=== PATIENT | female | born 1960 | race American Indian/Alaskan Native ===

== ENCOUNTER 2017-08-25 23:15 | Emergency (ER) | payer OTHER ==
[2017-08-26 00:58] LABS: Mean Corpuscular HGB Conc 34 % (30-34); Mean Corpuscular Hemoglobin 30 pg (28-32); Mean Corpuscular Volume 86 fl (79-97); Platelet Count 165 K/mm3 (140-440); Red Blood Count 4.06 M/mm3 (3.65-5.03); Red Cell Distribution Width 15.6 % (13.2-15.2)
[2017-08-26 01:12] LABS: INR 0.98 (0.87-1.13)
[2017-08-26 01:13] LABS: Partial Thromboplastin Time 32.1 Sec. (24.2-36.6)
[2017-08-26] MEDS ORDERED: TORADOL IV ONE (01:13)
[2017-08-26] MEDS ORDERED: NACL 0.9% 1000 ML 1,000 ML IV ONE (01:13)
[2017-08-26] MEDS ORDERED: ZOFRAN IV ONE ×2 (01:13→03:25)
--- NOTE | 2017-08-26 01:20 | Emergency Department Report ---
- General Chief Complaint: Chest Pain Stated Complaint: BODY PAIN Time Seen by Provider: 08/25/17 23:57 Source: patient, family, EMS, old records reviewed Mode of arrival: Stretcher Limitations: No Limitations - History of Present Illness Initial Comments: 57-year-old female with a past medical history of the COPD and hypertension presents to hospital with complaints of generalized bodyaches that started this morning. Patient having nausea without vomiting. The patient is has anterior chest pain reproducible palpation. Dry cough reported. Sore throat and generalized headache without neck stiffness. No documented fever by fevers and chills reported. Patient did receive a flu shot this year. 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 Upon further questioning it appears patient is preferring first 2013 visit and hospitalization here. At this time patient had elevated cardiac enzymes Revealed normal coronary arteries EF of 50%. EKG also normal. Patient states that her understanding is that her heart symptoms were induced by an infection. She denies any more recent cardiac workup. It appears that viral myocarditis with a consideration by treating ED physician on record although not a final diagonsis on d/c summary. Patient's troponin increased to over 8 during last hospitalization despite normal cath and patient presented with infectious symptoms suggesting a diagnosis of a viral myocarditis MD Complaint: other - Related Data Previous Rx's Medication Instructions Recorded Last Taken Type Aspirin EC [Aspirin Enteric Coated 325 mg PO QDAY #30 tablet 06/23/14 Unknown Rx TAB] Clopidogrel [Plavix] 75 mg PO QDAY #30 tablet 06/23/14 Unknown Rx Lisinopril [Zestril TAB] 20 mg PO QDAY #30 tablet 06/23/14 Unknown Rx Metoprolol [Lopressor TAB] 12.5 mg PO BID #60 tablet 06/23/14 Unknown Rx Rosuvastatin (Nf) [Crestor] 20 mg PO QHS #30 tablet 06/23/14 Unknown Rx Ibuprofen [Motrin] 800 mg PO Q8HR PRN #20 tablet 08/26/17 Unknown Rx Ondansetron [Zofran Odt] 4 mg PO Q8HR #20 tab.rapdis 08/26/17 Unknown Rx Allergies Allergy/AdvReac Type Severity Reaction Status Date / Time codeine Allergy Swelling Verified 06/20/14 11:48 Sulfa (Sulfonamide Allergy Unknown Verified 06/20/14 11:48 Antibiotics) ED Review of Systems ROS: Stated complaint: BODY PAIN Other details as noted in HPI Comment: All other systems reviewed and negative Other: Constitutional: Subjective fever Eyes: No eye pain visual changes or discharge ENT: No ear pain or throat pain Neck: Denies pain Respiratory: as per hpi Cardiovascular: Denies chest pain, palpitations, syncope GI: Generalized abdominal soreness, nausea, without diarrhea : Denies dysuria Musculoskeletal: gen body aches Skin: Denies rash, lesions, erythema Neurologic: Denies headache, numbness, weakness Psychiatric: Denies suicidal ideation, hallucinations ED Past Medical Hx - Past Medical History Previous Medical History?: Yes Hx Hypertension: Yes Hx Heart Attack/AMI: No (reported [place] here 2013 by cath showed normal coronary arteries) Hx COPD: Yes Hx HIV: No Additional medical history: DDD - Surgical History Past Surgical History?: Yes Hx Coronary Stent: No Additional Surgical History: tonsillectomy. hysterectomy. back fusion - Social History Smoking Status: Unknown if ever smoked Substance Use Type: Prescribed - Medications Home Medications: Home Medications Medication Instructions Recorded Confirmed Last Taken Type Aspirin EC [Aspirin Enteric Coated 325 mg PO QDAY #30 tablet 06/23/14 Unknown Rx TAB] Clopidogrel [Plavix] 75 mg PO QDAY #30 tablet 06/23/14 Unknown Rx Lisinopril [Zestril TAB] 20 mg PO QDAY #30 tablet 06/23/14 Unknown Rx Metoprolol [Lopressor TAB] 12.5 mg PO BID #60 tablet 06/23/14 Unknown Rx Rosuvastatin (Nf) [Crestor] 20 mg PO QHS #30 tablet 06/23/14 Unknown Rx Ibuprofen [Motrin] 800 mg PO Q8HR PRN #20 tablet 08/26/17 Unknown Rx Ondansetron [Zofran Odt] 4 mg PO Q8HR #20 tab.rapdis 08/26/17 Unknown Rx ED Physical Exam - General Limitations: No Limitations - Other Other exam information: General: No limitations, moderate distress due to body aches Head exam: Atraumatic, normocephalic Eyes exam: Normal appearance, pupils equal reactive to light, extraocular movements intact ENT: Moist mucous membrane, normal oropharynx, no exudates Neck exam: Normal inspection, full range of motion, no meningismus nontender Respiratory exam: Clear to auscultation bilateral, no wheezes, rales, crackles parasternal chest wall tenderness Cardiovascular: Normal rate and rhythm, normal heart sounds Abdomen: Soft, nondistended, mild generalized tenderness without rebound or guarding Extremity: Full range of motion normal inspection no deformity Back: Normal Inspection, full range of motion, no tenderness Neurologic: Alert, oriented x3, cranial nerves intact, no motor or sensory deficit Psychiatric: normal affect, normal mood Skin: Warm, dry, intact ED Course Vital Signs 08/26/17 08/26/17 08/26/17 00:10 01:00 01:45 Temperature 98.1 F Pulse Rate 95 H 94 H 90 Respiratory 18 16 18 Rate Blood Pressure 140/65 Blood Pressure 161/79 151/82 [Left] O2 Sat by Pulse 99 99 98 Oximetry 08/26/17 08/26/17 08/26/17 01:48 01:50 02:00 Temperature Pulse Rate 91 H Respiratory 20 20 20 Rate Blood Pressure Blood Pressure 141/71 [Left] O2 Sat by Pulse 100 Oximetry 08/26/17 08/26/17 05:24 06:04 Temperature Pulse Rate 83 85 Respiratory 18 18 Rate Blood Pressure Blood Pressure 129/69 132/68 [Left] O2 Sat by Pulse 97 100 Oximetry - Reevaluation(s) Reevaluation #1: 08/26/17 05:20 Patient initially had relief in symptoms with treatment. Patient states she started to have some mild epigastric pain and global headache is starting to return. She denies any neck pain or stiffness ED Medical Decision Making - Lab Data Result diagrams: 08/26/17 00:49 08/26/17 00:49 Lab Results 08/26/17 08/26/17 08/26/17 Range/Units 00:49 00:49 00:49 WBC 5.3 (4.5-11.0) K/mm3 RBC 4.06 (3.65-5.03) M/mm3 Hgb 12.0 (10.1-14.3) gm/dl Hct 35.0 (30.3-42.9) % MCV 86 (79-97) fl MCH 30 (28-32) pg MCHC 34 (30-34) % RDW 15.6 H (13.2-15.2) % Plt Count 165 (140-440) K/mm3 Add Manual Diff Complete Total Counted 100 Seg Neuts % (Manual) 87.0 H (40.0-70.0) % Band Neutrophils % 7.0 % Lymphocytes % (Manual) 5.0 L (13.4-35.0) % Reactive Lymphs % (Man) 0 % Monocytes % (Manual) 1.0 (0.0-7.3) % Eosinophils % (Manual) 0 (0.0-4.3) % Basophils % (Manual) 0 (0.0-1.8) % Metamyelocytes % 0 % Myelocytes % 0 % Promyelocytes % 0 % Blast Cells % 0 % Nucleated RBC % Not Reportable Seg Neutrophils # Man 4.6 (1.8-7.7) K/mm3 Band Neutrophils # 0.4 K/mm3 Lymphocytes # (Manual) 0.3 L (1.2-5.4) K/mm3 Abs React Lymphs (Man) 0.0 K/mm3 Monocytes # (Manual) 0.1 (0.0-0.8) K/mm3 Eosinophils # (Manual) 0.0 (0.0-0.4) K/mm3 Basophils # (Manual) 0.0 (0.0-0.1) K/mm3 Metamyelocytes # 0.0 K/mm3 Myelocytes # 0.0 K/mm3 Promyelocytes # 0.0 K/mm3 Blast Cells # 0.0 K/mm3 WBC Morphology Not Reportable Hypersegmented Neuts Not Reportable Hyposegmented Neuts Not Reportable Hypogranular Neuts Not Reportable Smudge Cells Not Reportable Toxic Granulation Not Reportable Toxic Vacuolation Not Reportable Dohle Bodies Not Reportable Pelger-Huet Anomaly Not Reportable Jerry Rods Not Reportable Platelet Estimate Consistent w auto Clumped Platelets Not Reportable Plt Clumps, EDTA Not Reportable Large Platelets Not Reportable Giant Platelets Not Reportable Platelet Satelliting Not Reportable Plt Morphology Comment Not Reportable RBC Morphology Not Reportable Dimorphic RBCs Not Reportable Polychromasia Not Reportable Hypochromasia Not Reportable Poikilocytosis Not Reportable Anisocytosis 1+ Microcytosis Not Reportable Macrocytosis Not Reportable Spherocytes Not Reportable Pappenheimer Bodies Not Reportable Sickle Cells Not Reportable Target Cells Not Reportable Tear Drop Cells Not Reportable Ovalocytes Not Reportable Helmet Cells Not Reportable [place] Bodies Not Reportable [place] Rings Not Reportable [place] Cells Not Reportable Bite Cells Not Reportable Crenated Cell Not Reportable Elliptocytes Not Reportable Acanthocytes (Spur) Not Reportable Rouleaux Not Reportable Hemoglobin C Crystals Not Reportable Schistocytes Not Reportable Malaria parasites Not Reportable Matteo Bodies Not Reportable Hem Pathologist Commnt No PT 13.5 (12.2-14.9) Sec. INR 0.98 (0.87-1.13) APTT 32.1 (24.2-36.6) Sec. Sodium 139 (137-145) mmol/L Potassium 3.7 (3.6-5.0) mmol/L Chloride 105.7 (98-107) mmol/L Carbon Dioxide 19 L (22-30) mmol/L Anion Gap 18 mmol/L BUN 8 (7-17) mg/dL Creatinine 0.6 L (0.7-1.2) mg/dL Estimated GFR > 60 ml/min BUN/Creatinine Ratio 13 % Glucose 113 H (65-100) mg/dL Calcium 8.3 L (8.4-10.2) mg/dL Total Creatine Kinase (30-135) units/L CK-MB (CK-2) (0.0-4.0) ng/mL CK-MB (CK-2) Rel Index (0-4) Troponin T < 0.010 (0.00-0.029) ng/mL Urine Color (Yellow) Urine Turbidity (Clear) Urine pH (5.0-7.0) Ur Specific [place] (1.003-1.030) Urine Protein (Negative) mg/dL Urine Glucose (UA) (Negative) mg/dL Urine Ketones (Negative) mg/dL Urine Blood (Negative) Urine Nitrite (Negative) Urine Bilirubin (Negative) Urine Urobilinogen (<2.0) mg/dL Ur Leukocyte Esterase (Negative) Urine WBC (Auto) (0.0-6.0) /HPF Urine RBC (Auto) (0.0-6.0) /HPF U Epithel Cells (Auto) (0-13.0) /HPF Urine Mucus /HPF 08/26/17 08/26/17 08/26/17 Range/Units 00:49 03:38 03:56 WBC (4.5-11.0) K/mm3 RBC (3.65-5.03) M/mm3 Hgb (10.1-14.3) gm/dl Hct (30.3-42.9) % MCV (79-97) fl MCH (28-32) pg MCHC (30-34) % RDW (13.2-15.2) % Plt Count (140-440) K/mm3 Add Manual Diff Total Counted Seg Neuts % (Manual) (40.0-70.0) % Band Neutrophils % % Lymphocytes % (Manual) (13.4-35.0) % Reactive Lymphs % (Man) % Monocytes % (Manual) (0.0-7.3) % Eosinophils % (Manual) (0.0-4.3) % Basophils % (Manual) (0.0-1.8) % Metamyelocytes % % Myelocytes % % Promyelocytes % % Blast Cells % % Nucleated RBC % Seg Neutrophils # Man (1.8-7.7) K/mm3 Band Neutrophils # K/mm3 Lymphocytes # (Manual) (1.2-5.4) K/mm3 Abs React Lymphs (Man) K/mm3 Monocytes # (Manual) (0.0-0.8) K/mm3 Eosinophils # (Manual) (0.0-0.4) K/mm3 Basophils # (Manual) (0.0-0.1) K/mm3 Metamyelocytes # K/mm3 Myelocytes # K/mm3 Promyelocytes # K/mm3 Blast Cells # K/mm3 WBC Morphology Hypersegmented Neuts Hyposegmented Neuts Hypogranular Neuts Smudge Cells Toxic Granulation Toxic Vacuolation Dohle Bodies Pelger-Huet Anomaly Jerry Rods Platelet Estimate Clumped Platelets Plt Clumps, EDTA Large Platelets Giant Platelets Platelet Satelliting Plt Morphology Comment RBC Morphology Dimorphic RBCs Polychromasia Hypochromasia Poikilocytosis Anisocytosis Microcytosis Macrocytosis Spherocytes Pappenheimer Bodies Sickle Cells Target Cells Tear Drop Cells Ovalocytes Helmet Cells [place] Bodies [place] Rings [place] Cells Bite Cells Crenated Cell Elliptocytes Acanthocytes (Spur) Rouleaux Hemoglobin C Crystals Schistocytes Malaria parasites Matteo Bodies Hem Pathologist Commnt PT (12.2-14.9) Sec. INR (0.87-1.13) APTT (24.2-36.6) Sec. Sodium (137-145) mmol/L Potassium (3.6-5.0) mmol/L Chloride (98-107) mmol/L Carbon Dioxide (22-30) mmol/L Anion Gap mmol/L BUN (7-17) mg/dL Creatinine (0.7-1.2) mg/dL Estimated GFR ml/min BUN/Creatinine Ratio % Glucose (65-100) mg/dL Calcium (8.4-10.2) mg/dL Total Creatine Kinase 73 (30-135) units/L CK-MB (CK-2) < 1.0 (0.0-4.0) ng/mL CK-MB (CK-2) Rel Index 1.3 (0-4) Troponin T < 0.010 (0.00-0.029) ng/mL Urine Color Yellow (Yellow) Urine Turbidity Clear (Clear) Urine pH 6.0 (5.0-7.0) Ur Specific [place] 1.015 (1.003-1.030) Urine Protein <15 mg/dl (Negative) mg/dL Urine Glucose (UA) Neg (Negative) mg/dL Urine Ketones Neg (Negative) mg/dL Urine Blood Neg (Negative) Urine Nitrite Neg (Negative) Urine Bilirubin Neg (Negative) Urine Urobilinogen < 2.0 (<2.0) mg/dL Ur Leukocyte Esterase Neg (Negative) Urine WBC (Auto) < 1.0 (0.0-6.0) /HPF Urine RBC (Auto) 2.0 (0.0-6.0) /HPF U Epithel Cells (Auto) 1.0 (0-13.0) /HPF Urine Mucus Few /HPF - EKG Data -: EKG Interpreted by [facility] EKG shows normal: sinus rhythm, axis (33), QRS complexes (81), ST-T waves (no stemi/t inv) Rate: normal (98) - EKG Data When compared to previous EKG there are: no significant change (06/20/14) - Radiology Data Radiology results: report reviewed (chest x-ray: No acute findings) - Medical Decision Making Patient having symptoms of a viral syndrome definitive bacterial source identified No signs of [place] or EKG/troponin abnormality suggest recurrent myocarditis (trop neg x2 ekg neg x 2) No signs of sepsis Improvement with ED treatment UA neg Patient will be discharged home symptomatic treatment and follow-up will be encouraged Patient reports an allergy to codeine then includes swelling of her airway and and does not know if she can take [place] or Percocet therefore only Motrin will be prescribed for pain - Differential Diagnosis viral syndrome, intra-abdominal pathology, UTI, pneumonia, [place] Critical Care Time: No Critical care attestation.: If time is entered above; I have spent that time in minutes in the direct care of this critically ill patient, excluding procedure time. ED Disposition Clinical Impression: Viral syndrome, Costochondritis Disposition: TO HOME OR SELFCARE Is pt being admited?: No Does the pt Need Aspirin: No Condition: Stable Instructions: Costochondritis (ED), Viral Syndrome (ED) Additional Instructions: Take the medication as prescribed. Follow-up with your doctor (or the doctor provided). Return if symptoms worsen as indicated by your discharge instructions Prescriptions: Ibuprofen [Motrin] 800 mg PO Q8HR PRN #20 tablet PRN Reason: Pain Ondansetron [Zofran Odt] 4 mg PO Q8HR #20 tab.rapdis Referrals: SAMPSON GIBSON MD [Staff Physician] - 3-5 Days your, doctor [Other] - 3-5 Days Time of Disposition: 06:05
[2017-08-26 01:24] LABS: BUN/Creatinine Ratio 13; Blood Urea Nitrogen 8 mg/dL (7-17); Calcium 8.3 mg/dL (8.4-10.2); Hemolysis Index 4
[2017-08-26 01:26] LABS: Creatine Kinase MB < 1.0 ng/mL (0.0-4.0)
[2017-08-26] MEDS ORDERED: MORPHINE IV ONE (01:33)
--- NOTE | 2017-08-26 02:17 | XRay Report ---
FINAL REPORT PROCEDURE: XR CHEST 1V AP TECHNIQUE: Chest radiograph anteroposterior view. CPT 27614 HISTORY: cp COMPARISON: No prior studies are available for comparison. FINDINGS: Heart: Normal. Mediastinum/Vessels: Normal. Lungs/Pleural space: Lungs are clear. There are no infiltrates, effusions or pneumothoraces.. Bony thorax: No acute osseous abnormality. Life support devices: None. IMPRESSION: No acute cardiopulmonary abnormality.
[2017-08-26 04:36] LABS: Band Neutrophils # (Manual) 0.4 K/mm3; Basophils % (Manual) 0 % (0.0-1.8); Eosinophils % (Manual) 0 % (0.0-4.3); Total Cells Counted 100
[2017-08-26 04:37] LABS: Anisocytosis 1+; Platelet Estimate Consistent w Auto
[2017-08-26 05:13] LABS: Bilirubin,Urine NEG (Negative); Blood,Urine NEG (Negative); Color,Urine Yellow (Yellow); Mucus,Urine FEW /HPF; Nitrite,Urine NEG (Negative); Protein,Urine <15 mg/dL mg/dL (Negative); Urobilinogen,Urine < 2.0 mg/dL (<2.0)
[2017-08-26 05:15] LABS: WBC,Urine < 1.0 /HPF (0.0-6.0)
[2017-08-26] MEDS ORDERED: DILAUDID IV ONE (05:18)
[2017-08-26 06:04] VITALS: BP 132/68
== END 2017-08-26 07:27 | disposition home or self-care (01) ==
LOC: ED 23:15
DX: M94.0 Chondrocostal junction syndrome [Tietze] (principal); B34.9 Viral infection, unspecified; I10 Essential (primary) hypertension; J44.9 Chronic obstructive pulmonary disease, unspecified; R11.0 Nausea; Z90.710 Acquired absence of both cervix and uterus; Z88.2 Allergy status to sulfonamides; Z88.5 Allergy status to narcotic agent; Z79.82 Long term (current) use of aspirin
CPT/HCPCS: 36415; 71045; 80048; 81001; 82550; 82553; 84484; 85007; 85025; 85610; 85730; 87400; 93005; 93010; 96361; 96374; 96375; 96376; 99285; J1170; J1885; J2270; J2405; J7030